=== PATIENT | male | born 1955 | race Caucasian/White ===

== ENCOUNTER 2016-12-24 16:40 | Emergency (ER) | payer OTHER ==
[~2016-12-24] VITALS: Ht 185.4 cm; Wt 66.2 kg
[2016-12-24 17:38] LABS: MCH 30.5 PG (29.0-34.0); MCHC 34.9 G/DL (30.0-36.0); MCV 87.4 FL (86-99); MEAN PLAT.VOLUME 10.2 uM^3 (9.0-12.4); PLATELET COUNT 102 K/uL (156-360); RBC DIS.WIDTH-CV 15.1 % (11.8-14.6); RBC DIS.WIDTH-SD 48.1 % (39-53); RED BLOOD COUNT 4.69 M/uL (4.00-5.50); WHITE BLOOD COUNT 5.5 K/uL (4.1-10.2)
[2016-12-24 17:50] LABS: CHLORIDE 101 mEq/L (99-109); POTASSIUM 3.9 mEq/L (3.7-5.4); SODIUM 142 mEq/L (136-147)
[2016-12-24 17:52] LABS: GLUCOSE 84 mg/dL (70-99)
[2016-12-24 17:53] LABS: ANION GAP 14 MEQ/L (2-14)
[2016-12-24 17:54] LABS: TOTAL BILIRUBIN 0.5 mg/dL (0.0-1.0)
[2016-12-24 17:55] LABS: SERUM ETHYL ALCOHOL 286 mg/dL
[2016-12-24 17:56] LABS: ALKALINE PHOSPHATASE 71 IU/L (3-129); GFR ESTIMATE (CALCULATED) > 59 mL/min/
[2016-12-24] MEDS ORDERED: VISTARIL25 MG PO (17:56)
[2016-12-24] MEDS ORDERED: GABAPENTIN100 MG PO (17:56)
[2016-12-24 17:57] LABS: UREA NITROGEN (BUN) 7 mg/dL (9-23)
[2016-12-24] MEDS ORDERED: SEROQUEL50 MG PO (17:57)
[2016-12-24] MEDS ORDERED: NAPROSYN500 MG PO (17:57)
[2016-12-24 18:01] LABS: ADD MIUA? YES; BILIRUBIN NEGATIVE; BLOOD SMALL; COLOR STRAW ((YELLOW)); GLUCOSE (STRIP) NEGATIVE; KETONES NEGATIVE; LEUKOCYTES NEGATIVE; NITRITE NEGATIVE; PROTEIN (STRIP) NEGATIVE; SPECIFIC GRAVITY 1.005 (1.000-1.030); UROBILINOGEN 0.2 MG/DL (0.2-1.0)
[2016-12-24 18:06] LABS: BACTERIA NONE SEEN /HPF; EPITHELIAL CELLS NONE SEEN /HPF; MUCUS NONE SEEN /LPF; RED BLOOD CELLS 0-5 /HPF (0-5); UCUL ADDED? NO; WHITE BLOOD CELLS 0-5 /HPF (0-5)
[2016-12-24 18:10] LABS: AMPHETAMINE NEGATIVE (500 ng/mL); BARBITURATES NEGATIVE (200 ng/mL); BENZODIAZEPINES NEGATIVE (150 ng/mL); COCAINE NEGATIVE (150 ng/mL); INTERNAL CONTROLS VALID? YES; METHADONE NEGATIVE (200 ng/mL); METHAMPHETAMINE NEGATIVE (500 ng/mL); OPIATES (MORPHINE) NEGATIVE (100 ng/mL); OXYCODONE NEGATIVE (100 ng/mL); PHENCYCLIDINE NEGATIVE (25 ng/mL); PROPOXYPHENE NEGATIVE (300 ng/mL); THC CANNABINOIDS PRESUMPTIVE POSITIVE (50 ng/mL); TRICYCLIC ANTIDEPRESSANTS NEGATIVE (300 ng/mL)
[2016-12-24 18:11] LABS: ADD MEDTOX COMMENT Y
[2016-12-24 18:43] LABS: MARIJUANA QUANT VALUE 0 NG/ML
[2016-12-24 18:51] VITALS: BP 128/86
== END 2016-12-24 18:53 | disposition home or self-care (01) ==
LOC: EME 16:40
PROVIDERS: Emergency Medicine
DX: F10.129 Alcohol abuse with intoxication, unspecified (principal); Y90.8 Blood alcohol level of 240 mg/100 ml or more; F17.200 Nicotine dependence, unspecified, uncomplicated; Z88.0 Allergy status to penicillin
CPT/HCPCS: 80053; 81003; 84999; 85027; 99281; 99283; G0480

== ENCOUNTER 2017-10-01 11:12 | Emergency (ER) | payer OTHER ==
[~2017-10-01] VITALS: Ht 185.4 cm; Wt 71.5 kg
[~2017-10-01 11:12] MED LIST: GABAPENTIN100 MG PO; NAPROSYN500 MG PO; SEROQUEL50 MG PO; VISTARIL25 MG PO
[2017-10-01] MEDS ORDERED: PERCOCET 5/31 TABLET PO (13:55)
[2017-10-01] MEDS ORDERED: MEDROL DOSEPAK4 MG PO (13:56)
[2017-10-01 14:47] VITALS: BP 104/64
== END 2017-10-01 15:00 | disposition home or self-care (01) ==
LOC: EME 11:12
DX: M51.27 Other intervertebral disc displacement, lumbosacral region (principal); M51.16 Intervertebral disc disorders with radiculopathy, lumbar region; M79.605 Pain in left leg; F17.200 Nicotine dependence, unspecified, uncomplicated
CPT/HCPCS: 72148; 99281; 99284